=== PATIENT | male | born 1985 | race Caucasian/White ===

== ENCOUNTER 2021-12-25 11:46 | Observation (INO) | payer BC ==
[~2021-12-25] VITALS: Ht 170.2 cm; Wt 61.0 kg
[2021-12-25] VITALS (19 sets, daily range): BP systolic 123–171; BP diastolic 81–115
--- NOTE | 2021-12-25 12:06 | NUR ---
PATIENT AMBULATED TO ROOM FROM LOBBY IN [facility]. CONNECTED TO MONITOR AND PROVIDER NOTIFIED OF PATIENT STATUS.
[2021-12-25 12:51] LABS: HEMATOCRIT 45.4 % (39.0-50.0); HEMOGLOBIN 14.8 g/dl (14.0-18.0); IMMATURE GRANULOCYTES 0.2 % (0.0-5.0); MEAN CELL VOLUME 90.3 fL CALC (80.0-100.0); MEAN CORPUSCULAR HGB 29.4 pG CALC (26.0-32.0); MEAN CORPUSCULAR HGB CONC 32.6 g/dL CAL (32.0-36.0); NEUT# 7.16 thou/uL (1.82-7.42); RED BLOOD COUNT 5.03 mill/uL (4.70-6.10)
[2021-12-25 13:08] LABS: INTERNATIONAL NORMALIZED RATIO 0.9 RATIO (0.7-1.3); PROTHROMBIN TIME 9.9 SECONDS (9.0-12.5)
[2021-12-25 13:11] LABS: ALBUMIN 4.5 g/dL (3.2-5.0); ALKALINE PHOSPHATASE 74 u/l (38-126); ANION GAP 13 (6-22 (CALC)); BILIRUBIN, TOTAL 2.3 mg/dL (0.0-1.4); BUN 7 mg/dL (9-20); BUN/CREATININE RATIO 7 (12-20 (CALC)); CARBON DIOXIDE 23 mmol/l (22-30); CHLORIDE 105 mmol/l (95-108); CREATININE 0.9 mg/dL (0.7-1.3); GFR FOR AFR.AMER. > 60 ML/MIN (>=60 (CALC)); GFR OTHER RACES > 60 ML/MIN (>=60 (CALC)); LIPASE 56 u/l (23-300); POTASSIUM 3.6 mmol/l (3.5-5.1); SGOT/AST 33 u/l (17-59); SODIUM 137 mmol/l (137-146); TOTAL PROTEIN 7.7 g/dL (6.3-8.2)
[2021-12-25 13:22] LABS: MYOGLOBIN 40 ng/mL (0 - 121)
--- NOTE | 2021-12-25 13:49 | NUR ---
PT, HAD 2 SUBSEQUENT EKG'S DONE DUE TO CONTINUED AND WORSE PAIN , PAIN RELIEVED AFTER MORPHINE
--- NOTE | 2021-12-25 14:05 | NUR ---
PT IN ROOM. COVID SWAB TAKEN. MADE PT AWARE OF ADMISSION TIME.
--- NOTE | 2021-12-25 15:17 | NUR ---
Reassessment of patient completed. No distress noted.
--- NOTE | 2021-12-25 15:31 | NUR ---
PT TAKEN TO ROOM 274 FOR ADMISSION. PT AMBULATES WITH STEADY GAIT WITH BELONGINGS (PHONE COMPLEX CARE NURSE PRACTITIONER, PHONE, T-SHIRT)
--- NOTE | 2021-12-25 16:09 | NUR ---
RECEIVE PATIENT FROM ER. REPORT FROM HERBER PARKS. PATIENT ALERT AND ORIENTED X3. NOT REPORT CHEST PAIN AT THIS TIME. PT IS EDUCATED ABOUD MEDICATIONS, ADMISSION AND PLAN OF CARE. PATIENT REFER UNDERSTAND.
--- NOTE | 2021-12-25 20:00 | NUR ---
PT IN BED A/O X4, NO DISTRESS NOTED, BED IN LOW POSITION, CALL LIGHT IN REACH
[2021-12-26] VITALS (7 sets, daily range): BP systolic 102–151; BP diastolic 69–111
--- NOTE | 2021-12-26 05:14 | NUR ---
PT ASLEEP IN BED, NO DISTRESS NOTED, NO OVERNIGHT EVENTS, BED IN LOW POSITION, CALL LIGHT IN [facility]
[2021-12-26 05:38] LABS: CHOLESTEROL HDL RATIO 2.6 (<4.4 (CALC)); MAGNESIUM 2.3 mg/dL (1.6-2.3)
--- NOTE | 2021-12-26 07:00 | NUR ---
report recieved from [facility] technicianshift leader. pt sleeping upon entering room. breathing even and unlabored. fall/saftey precaution in place. call light within reach
--- NOTE | 2021-12-26 08:00 | NUR ---
PT RESTING IN BED. STATES NO PAIN. IV RAC 20G SL. FLUSHED. ASSESSMENT ALLOWED. PT IS A&OX4.LUNG SOUNDS CLEAR UPPER/LOWER LOBES. HEART SOUNDS: REGULAR. BOWELS ACTIVE X4. RADIAL/PEDAL STRONG. TELE MONITOR IN PLACE, CONTINOUS MONITORING PER ED. FALL/SAFTEY PRECAUTION IN PLACE. CALL LIGHT WITHIN REACH.
--- NOTE | 2021-12-26 09:56 | NUR ---
PT COMPLAINS OF CP./DIZZINESS. CHEST TIGHTNESS,N NO DIAPHORESIS NOTED. BREATHING EVEN AND UNLABORED. VITALS OBTAINED BP: 151/111 SPO2: 99 RR: 20 HR:102 BLOOD GLUCOSE CHECK: 126 NOTIFIED: NEW ORDERS FOR EKG/TROPNIN
--- NOTE | 2021-12-26 10:03 | NUR ---
RT AT BEDSIDE
--- NOTE | 2021-12-26 10:41 | NUR ---
PT STATED NO FEELING OF CP. MD NOTIFIED NEW ORDERS FOR EKG. VITALS OBTAINED\ BP: 133/92 SPO2: 100 RR: 20 HR: 68
--- NOTE | 2021-12-26 12:33 | NUR ---
Discharge instructions given. Patient verbalizes understanding of same. Discharged in stable condition via Wheelchair to Home with staff. All belongings sent with pt.
== END 2021-12-26 12:28 | disposition home or self-care (01) | DRG 313 ==
LOC: ED 11:46 → ED-I 13:25 → ED 13:48 → MS2 13:49
PROVIDERS: Nurse Practitioner; ADMIT Internal Medicine; ATTEND Internal Medicine
DX: R07.9 Chest pain, unspecified (principal); R00.2 Palpitations; R94.31 Abnormal electrocardiogram [ECG] [EKG]; F17.210 Nicotine dependence, cigarettes, uncomplicated; Z82.49 Family history of ischemic heart disease and other diseases of the circulatory system; Z20.822 Contact with and (suspected) exposure to COVID-19
CPT/HCPCS: G0378; J1650